=== PATIENT | male | born 1955 | race Caucasian/White ===

== ENCOUNTER 2024-04-27 18:23 | Inpatient (IN) | payer OTHER ==
[2024-04-27 18:34] VITALS: RESP 18; BMI 23.7
[2024-04-27 20:45] LABS: BASO % 0.3 % (0-2.0); EOS % 0.9 % (0-4.5); HEMATOCRIT 43.6 % (35.4-49); HEMOGLOBIN 14.5 GM/dL (11.7-16.9); LYMPH % 17.2 % (8-40); MCHC 33.3 g/dl (32.0-35.9); MEAN PLT VOLUME 7.5 fl (7.5-11.1); NEUT % 76.6 % (42.8-82.8); PLATELET COUNT 328 10^3/uL (134-434); RBC 4.84 M/mm3 (4.00-5.60); RDW 15.1 % (11.9-15.9); WHITE BLOOD COUNT 12.4 K/mm3 (4.0-10.0)
[2024-04-27 20:55] LABS: POTASSIUM 4.4 mmol/L (3.5-5.1)
[2024-04-27 20:57] LABS: CALCIUM 10.1 mg/dL (8.5-10.1); INR 0.91 (0.83-1.09); PROTHROMBIN TIME (PATIENT) 10.5 SEC (9.7-13.0)
[2024-04-27 20:58] LABS: BLOOD UREA NITROGEN 16.3 mg/dL (7-18)
[2024-04-27 21:03] LABS: TOT PROT 7.9 g/dl (6.4-8.2)
[2024-04-27 21:49] LABS: HIV INTERPRETATION NEGATIVE (NEGATIVE)
[2024-04-28] MEDS ORDERED: ALBUTEROL SO4 2.5/IPRATROPIUM 0.5 INH SOL 3 ML VIAL.NEB. NEB PRN (01:53)
[2024-04-28] MEDS ORDERED: MAG HYDROX/AL HYDROX/SIMETH 30 ML UNIT-DOSE CUP ONE (02:43)
[2024-04-28] MEDS: ACETAMINOPHEN 325 MG TABLET (FP) PO ONE (03:42)
[2024-04-28] MEDS: MAG HYDROX/AL HYDROX/SIMETH 30 ML UNIT-DOSE CUP PO ONE (03:44)
[2024-04-28] MEDS: methylPREDNISolone NA SUCC 40 MG/1 ML VIAL IVPUSH SCH (03:44)
[2024-04-28 04:14] LABS: URINE APPEARANCE CLEAR; URINE BILIRUBIN NEGATIVE (NEGATIVE); URINE COLOR YELLOW; URINE GLUCOSE (UA) NEGATIVE (NEGATIVE); URINE KETONE NEGATIVE (NEGATIVE)
[2024-04-28 04:15] LABS: URINE LEUK ESTERASE N (NEGATIVE); URINE NITRITE NEGATIVE (NEGATIVE); URINE UROBILINOGEN 0.2 mg/dL (0.2-1.0)
[2024-04-28 04:16] LABS: URINE PROTEIN NEGATIVE (NEGATIVE)
[2024-04-28 06:19] LABS: BASO % 0.2 % (0-2.0); EOS % 0.9 % (0-4.5); HEMATOCRIT 38.5 % (35.4-49); HEMOGLOBIN 12.8 GM/dL (11.7-16.9); LYMPH % 8.5 % (8-40); MCH 30.1 pg (25.7-33.7); MCHC 33.3 g/dl (32.0-35.9); MEAN CELL VOLUME 90.3 fl (80-96); MEAN PLT VOLUME 7.7 fl (7.5-11.1); MONO % 3.5 % (3.8-10.2); NEUT % 86.9 % (42.8-82.8); PLATELET COUNT 293 10^3/uL (134-434); RBC 4.26 M/mm3 (4.00-5.60); RDW 14.7 % (11.9-15.9); WHITE BLOOD COUNT 15.2 K/mm3 (4.0-10.0)
[2024-04-28] MEDS: HYDROCHLOROTHIAZIDE 12.5 MG CAPSULE (FP) PO SCH (09:54)
[2024-04-28] MEDS: ENOXAPARIN NA (PORCINE) 40 MG/0.4 ML DISP.SYRIN SQ SCH (09:54)
[2024-04-28] MEDS ORDERED: UPADACITINIB 15 MG PO SCH (10:00)
[2024-04-28 10:05] LABS: MAGNESIUM 1.9 mg/dL (1.8-2.4)
[2024-04-28 10:06] LABS: ALBUMIN 3.3 g/dl (3.4-5.0); BLOOD UREA NITROGEN 15.5 mg/dL (7-18); CALCIUM 9.3 mg/dL (8.5-10.1)
[2024-04-28 10:09] LABS: BILIRUBIN,TOTAL 1.3 mg/dL (0.2-1)
[2024-04-28 10:10] LABS: TOT PROT 6.4 g/dl (6.4-8.2)
[2024-04-28 10:39] LABS: N-TERMINAL BNP 81.9 pg/ml (5-125)
[2024-04-28] MEDS: AZITHROMYCIN IVPB 500 MG/250 ML BAG IVPB SCH (12:11)
[2024-04-28] MEDS: BUDESONIDE/FORMETEROL FUMARATE 80/4.5 mcg INHALER IH SCH (12:11)
[2024-04-28] MEDS: predniSONE 20 MG TABLET (UD) PO SCH (12:11)
[2024-04-28] MEDS: ALBUTEROL SO4 2.5/IPRATROPIUM 0.5 INH SOL 3 ML VIAL.NEB. NEB SCH (13:29)
[2024-04-28] MEDS: NICOTINE 21 MG/24 HOURS TOPICAL PATCH TD SCH (20:08)
[2024-04-28] MEDS: LISINOPRIL 20 MG TABLET PO SCH (21:27)
[2024-04-28] MEDS ORDERED: LISINOPRIL 20 MG TABLET PO SCH (22:00)
[2024-04-29] MEDS: ACETAMINOPHEN 325 MG TABLET (FP) PO PRN (00:43)
[2024-04-29] MEDS ORDERED: guaiFENesin 200 MG/10 ML 10 ML UNIT-DOSE CUPS PO ONE (00:49)
[2024-04-29] MEDS: guaiFENesin 200 MG/10 ML 10 ML UNIT-DOSE CUPS PO ONE (04:22)
[2024-04-29 10:19] LABS: CALCIUM 9.7 mg/dL (8.5-10.1)
[2024-04-29 10:22] LABS: CREATININE 1.1 mg/dL (0.55-1.3)
[2024-04-29 10:29] LABS: ERYTHROCYTE SEDIMENTATION RATE 18 mm/hr (0-20)
[2024-04-29 10:32] LABS: BASO % 0.2 % (0-2.0); EOS % 0.3 % (0-4.5); HEMATOCRIT 36.6 % (35.4-49); HEMOGLOBIN 12.2 GM/dL (11.7-16.9); MCH 29.9 pg (25.7-33.7); MCHC 33.3 g/dl (32.0-35.9); MEAN CELL VOLUME 89.7 fl (80-96); MONO % 4.5 % (3.8-10.2); PLATELET COUNT 291 10^3/uL (134-434); RBC 4.08 M/mm3 (4.00-5.60); RDW 15.1 % (11.9-15.9); WHITE BLOOD COUNT 13.6 K/mm3 (4.0-10.0)
[2024-04-29] MEDS: CEFTRIAXONE 1 G/50 ML PREMIX 50 ML IVPB SCH (10:55)
[2024-04-30] MEDS: BENZOCAINE/MENTHOL 1 EACH LOZENGE MM PRN (06:49)
[2024-04-30 12:33] LABS: HEMOGLOBIN 13.5 GM/dL (11.7-16.9); MCH 29.7 pg (25.7-33.7); MEAN CELL VOLUME 89.8 fl (80-96); MEAN PLT VOLUME 7.9 fl (7.5-11.1); PLATELET COUNT 316 10^3/uL (134-434); RBC 4.56 M/mm3 (4.00-5.60); RDW 14.7 % (11.9-15.9); WHITE BLOOD COUNT 10.1 K/mm3 (4.0-10.0)
[2024-04-30 12:59] LABS: POTASSIUM 4.2 mmol/L (3.5-5.1)
[2024-04-30 13:12] LABS: ERYTHROCYTE SEDIMENTATION RATE 23 mm/hr (0-20)
[2024-04-30 13:17] LABS: ALBUMIN 3.6 g/dl (3.4-5.0); BLOOD UREA NITROGEN 16.6 mg/dL (7-18); CALCIUM 9.8 mg/dL (8.5-10.1)
[2024-04-30 13:20] LABS: BILIRUBIN,TOTAL 0.9 mg/dL (0.2-1); TOT PROT 7.1 g/dl (6.4-8.2)
[2024-04-30 13:29] LABS: LACTIC ACID 2.3 mmol/L (0.4-2.0)
[2024-05-01 09:25] VITALS: BP 144/75; PULSE 83; TEMP 97.9
[2024-05-01 11:18] LABS: POTASSIUM 3.8 mmol/L (3.5-5.1)
[2024-05-01 11:23] LABS: HEMATOCRIT 38.2 % (35.4-49); HEMOGLOBIN 12.7 GM/dL (11.7-16.9); MCH 30.2 pg (25.7-33.7); MCHC 33.2 g/dl (32.0-35.9); PLATELET COUNT 304 10^3/uL (134-434); RDW 14.8 % (11.9-15.9); WHITE BLOOD COUNT 8.6 K/mm3 (4.0-10.0)
[2024-05-01 11:47] LABS: ALBUMIN 3.2 g/dl (3.4-5.0); BLOOD UREA NITROGEN 23.1 mg/dL (7-18); CALCIUM 9.8 mg/dL (8.5-10.1)
[2024-05-01 11:51] LABS: CREATININE 1.2 mg/dL (0.55-1.3)
[2024-05-01 11:53] LABS: TOT PROT 6.2 g/dl (6.4-8.2)
== END 2024-05-01 13:36 | disposition home or self-care (01) | DRG 923 ==
LOC: JER 18:23 → JERBED 21:26 → J6S 04-28 04:06 → OBSVTOIN 04-30 10:43
PROVIDERS: ADMIT Internal Medicine; ATTEND Internal Medicine
DX: T69.1XXA Chilblains, initial encounter (principal); K57.92 Diverticulitis of intestine, part unspecified, without perforation or abscess without bleeding; J44.1 Chronic obstructive pulmonary disease with (acute) exacerbation; K50.90 Crohn's disease, unspecified, without complications; I10 Essential (primary) hypertension; B34.9 Viral infection, unspecified; F17.210 Nicotine dependence, cigarettes, uncomplicated
CPT/HCPCS: 0241U-QW; 36415; 71045-TC-FY; 73630-TC-LT; 74177-TC; 75635-TC; 80048; 80053; 80061; 81003; 83605; 83735; 83880; 84100; 84443; 84484; 85025; 85027; 85379; 85610; 85651; 86140; 86738; 86803; 86850; 86900; 86901; 87389; 87633; 87651; 93005; 93010; 93306-TC; 93975; 94640; 99285-25; G0378; Q9963; Q9967